=== PATIENT | female | born 1955 | race African-American/Black ===

== ENCOUNTER 2022-07-15 17:28 | Emergency (ER) | payer OTHER ==
[~2022-07-15] VITALS: Ht 177.8 cm; Wt 100.0 kg
[2022-07-15 19:41] LABS: HEMATOCRIT. 38.1 % (36.0-48.0); MEAN CORPUSCULAR HEMOGLOBIN 25.8 pg (28.0-32.0); MEAN PLATELET VOLUME 10.2 fl (7.4-10.4); PLATELET 196 x1000/uL (130-400); RED BLOOD CELL COUNT 4.65 mill/uL (4.2-5.4); RED CELL DISTRIBUTION WIDTH 14.5 % (11.6-14.6)
[2022-07-15 19:53] LABS: D-DIMER 3.41 mg/L FEU (<0.50); PROTHROMBIN TIME 11.1 sec (9.6-11.0)
[2022-07-15 20:49] LABS: CHLORIDE 114 mEq/L (98-107)
[2022-07-15] MEDS ORDERED: IOHEXOL-350 100 ML BOTTLE ONE (21:35)
[2022-07-15] MEDS ORDERED: ASPIRIN 325MG EC TABLET PO ONE (22:00)
[2022-07-15 22:10] LABS: PLATELET ESTIMATE NORMAL
[2022-07-16] MEDS ORDERED: IOHEXOL-350 100 ML BOTTLE ONE (00:55)
[2022-07-16 06:20] VITALS: BP 123/45
== END 2022-07-16 06:35 | disposition short-term general hospital (02) ==
LOC: ER 17:28 → CANBEDREQ 07-16 11:04
DX: I11.0 Hypertensive heart disease with heart failure (principal); I50.9 Heart failure, unspecified; R07.89 Other chest pain; R06.02 Shortness of breath; Z20.822 Contact with and (suspected) exposure to COVID-19
CPT/HCPCS: 36415; 71045; 71275; 74174; 80053; 83690; 83880; 84484; 85025; 85379; 85610; 87426; 93005; 93970; 99285; C9803; Q9967